=== PATIENT | male | born 1965 | race Caucasian/White ===

== ENCOUNTER 2019-09-08 23:41 | Emergency (ER) | payer MEDICARE, MEDICAID ==
[2019-09-09 01:40] VITALS: BP 141/92; PULSE 98
--- NOTE | 2019-09-09 02:11 | EDM.PDOC ---
ED HPI GENERAL MEDICAL PROBLEM - General Chief Complaint: Lower Extremity Injury/Pain Stated Complaint: MEDS NOT WORKING FOR RIGHT LEG Time Seen by Provider: 09/09/19 01:45 Source of Information: Reports: Patient, RN History Limitations: Reports: Physical Impairment (prior CVA) - History of Present Illness INITIAL COMMENTS - FREE TEXT/NARRATIVE: ED with c/o neuropathic pain, Has been seen in clinic and appears medications increased form 400-600 Neuronitn three times daily. States not working. Has been about 3 weeks since increase. has not contacted or followed up with PCP or neurologist. pain intermittent and shooting. Right Lower Foot Pain Score (Numeric/FACES): 10 - Related Data Allergies Allergy/AdvReac Type Severity Reaction Status Date / Time amoxicillin trihydrate Allergy Severe Anaphylactic Verified 09/09/19 01:17 [From Augmentin] Shock codeine Allergy Nausea and Verified 09/09/19 01:17 Vomiting potassium clavulanate Allergy Anaphylactic Verified 09/09/19 01:17 [From Augmentin] Shock Home Meds: Home Meds Aspirin [Ecotrin] 325 mg PO DAILY 06/17/13 [History] Baclofen [Lioresal] 20 mg PO TID 06/17/13 [History] Gabapentin [Neurontin] 400 mg PO TID 06/17/13 [History] Losartan [Cozaar] 25 mg PO DAILY 06/17/13 [History] Multivitamin with Minerals [Multivitamins with Minerals] 1 cap PO DAILY [History] Simvastatin [Zocor] 10 mg PO BEDTIME 06/17/13 [History] levETIRAcetam [Keppra] 500 mg PO BID 06/17/13 [History] metFORMIN [Glucophage] 1,000 mg PO BIDM 06/17/13 [History] Celecoxib 100 mg PO BID 11/15/18 [History] Past Medical History Cardiovascular History: Reports: High Cholesterol, Hypertension Neurological History: Reports: CVA, Neuropathy, Peripheral, Seizure Endocrine/Metabolic History: Reports: Diabetes, Type II, Obesity/BMI 30+ - Past Surgical History GI Surgical History: Reports: Appendectomy Social & Family History - Family History Family Medical History: Noncontributory - Caffeine Use Caffeine Use: Reports: None - Recreational Drug Use Recreational Drug Use: Yes Recreational Drug Type: Reports: Marijuana/Hashish Recreational Drug Use Frequency: Not Used In Over 1 Month - Living Situation & Occupation Living situation: Reports: Alone Occupation: Disabled Review of Systems - Review of Systems Review Of Systems: Comprehensive ROS is negative, except as noted in HPI. ED EXAM, GENERAL - Physical Exam Exam: See Below Exam Limited By: No Limitations General Appearance: Alert, Anxious, Obese Eye Exam: Bilateral Eye: EOMI, PERRL Ears: Normal External Exam, Hearing Grossly Normal Nose: Normal Inspection Throat/Mouth: Normal Inspection, Normal Voice Head: Normocephalic Neck: Normal Inspection Respiratory/Chest: No Respiratory Distress, Lungs Clear, Normal Breath Sounds Cardiovascular: Regular Rate, Rhythm GI/Abdominal: Normal Bowel Sounds, Soft Extremities: Pedal Edema, Limited Range of Motion, Other (w/c with right sided weakness.) Neurological: Alert, Oriented, Normal Cognition, Sensory/Motor Deficit, Other ( speech deliberate, pressured, clear) Psychiatric: Anxious Skin Exam: Warm, Dry, Normal Color Course - Vital Signs Last Recorded V/S: Last Vital Signs Temp 98.9 F 09/09/19 01:35 Pulse 98 09/09/19 01:35 Resp 18 09/09/19 01:35 BP 141/92 H 09/09/19 01:35 Pulse Ox 100 09/09/19 01:35 - Re-Assessments/Exams Free Text/Narrative Re-Assessment/Exam: 09/12/19 02:21 HX is vague, Qustion processing ability in responses involving anything to do with numbering severity or how long of symptoms. Patient fixated but does not appear in discomfort at time of visit. Departure - Departure Time of Disposition: 02:08 Disposition: Home, Self-Care 01 Condition: Good Clinical Impression: Neuropathy, History of CVA (cerebrovascular accident) - Discharge Information *PRESCRIPTION DRUG MONITORING PROGRAM REVIEWED*: No *COPY OF PRESCRIPTION DRUG MONITORING REPORT IN PATIENT DINORAH: No Instructions: Neuropathic Pain Referrals: Magnolia Loredo MD [Primary Care Provider] - Forms: ED Department Discharge Additional Instructions: take medication as prescribed follow with primary care in am Sepsis Event Note (ED) - Evaluation Sepsis Screening Result: No Definite Risk
== END 2019-09-09 02:13 | disposition home or self-care (01) ==
LOC: DL.ED 23:41
DX: E11.42 Type 2 diabetes mellitus with diabetic polyneuropathy (principal); I10 Essential (primary) hypertension; E78.00 Pure hypercholesterolemia, unspecified; E66.9 Obesity, unspecified; R56.9 Unspecified convulsions; Z68.41 Body mass index [BMI] 40.0-44.9, adult; Z86.73 Personal history of transient ischemic attack (TIA), and cerebral infarction without residual deficits; Z79.84 Long term (current) use of oral hypoglycemic drugs; Z79.899 Other long term (current) drug therapy; Z88.1 Allergy status to other antibiotic agents; Z88.5 Allergy status to narcotic agent; Z79.82 Long term (current) use of aspirin
CPT/HCPCS: 99283

== ENCOUNTER 2023-07-19 20:12 | Emergency (ER) | payer MEDICARE, MEDICAID ==
[2023-07-19 20:55] LABS: BASOPHILS PERCENT AUTO 0.3 % (0.0-1.0); EOSINOPHILS PERCENT AUTO 2.6 % (1.0-3.0); HEMATOCRIT 52.2 % (40.0-54.0); HEMOGLOBIN 17.1 g/dL (14.0-18.0); LYMPHOCYTES PERCENT AUTO 15.8 % (20.5-50.1); MEAN CORPUSCULAR HEMOGLOBIN 24.4 pg (27.0-34.0); MEAN CORPUSCULAR HGB CONC 32.8 g/dL (33.0-35.0); MEAN CORPUSCULAR VOLUME 74.4 fL (80-100); MONOCYTES PERCENT AUTO 11.8 % (2-8); NEUTROPHILS PERCENT AUTO 69.5 % (42.2-75.2); PLATELET COUNT,PLT 294 10^3/uL (150-450); RED BLOOD CELL COUNT 7.02 10^6/uL (4.6-6.2); WHITE BLOOD CELL COUNT,WBC 9.1 10^3/uL (5.0-10.0)
[2023-07-19] MEDS: Ibuprofen 600 MG Tab PO ONE (21:08)
[2023-07-19] MEDS: Sodium Chloride 0.9% 1,000 ML IV ONE (21:10)
[2023-07-19 21:11] LABS: A/G RATIO 0.9; ALBUMIN 3.5 g/dL (3.4-5.0); ANION GAP 17.9 mEq/L (7-13); BUN/CREATININE RATIO 8.3 (No establ ref range); CALCIUM 8.6 mg/dL (8.5-10.1); CREATININE 1.33 mg/dL (0.70-1.30); EST CRCL DRUG DOSING (CG) 61.28 mL/min; POTASSIUM,K 3.9 mmol/L (3.5-5.1); PROTEIN TOTAL,TP 7.5 g/dL (6.4-8.2)
[2023-07-19] MEDS: Sodium Chloride 0.9% 10 ML Syringe FLUSH PRN (21:14)
[2023-07-19 21:15] LABS: LACTIC ACID 1.8 mmol/L (0.4-2.0)
[2023-07-19 21:48] LABS: CORONAVIRUS COVID-19 NAA NEGATIVE (NEGATIVE); INFLUENZA A NAA NEGATIVE (NEGATIVE); INFLUENZA B NAA NEGATIVE (NEGATIVE); RESPIRATORY SYNCYTIAL VIR NAA NEGATIVE (NEGATIVE)
[2023-07-19] MEDS: Lactated Ringers 1,000 ML IV ONE (22:37)
[2023-07-19 22:38] VITALS: BP 102/60; PULSE 98
== END 2023-07-19 23:22 | disposition home or self-care (01) ==
LOC: DL.ED 20:12
DX: J06.9 Acute upper respiratory infection, unspecified (principal); R65.10 Systemic inflammatory response syndrome (SIRS) of non-infectious origin without acute organ dysfunction; E11.65 Type 2 diabetes mellitus with hyperglycemia; I10 Essential (primary) hypertension; E78.00 Pure hypercholesterolemia, unspecified; Z86.73 Personal history of transient ischemic attack (TIA), and cerebral infarction without residual deficits; E66.9 Obesity, unspecified; E11.40 Type 2 diabetes mellitus with diabetic neuropathy, unspecified; Z88.0 Allergy status to penicillin; Z88.5 Allergy status to narcotic agent; Z79.82 Long term (current) use of aspirin; Z79.899 Other long term (current) drug therapy; Z79.84 Long term (current) use of oral hypoglycemic drugs; Z68.36 Body mass index [BMI] 36.0-36.9, adult
CPT/HCPCS: 0241U; 36415; 71045; 80053; 83605; 84484; 85025; 87040; 93005; 96360; 96361; 99284-25; A9270-GY; J3490; J7030; J7120

== ENCOUNTER 2025-03-04 09:32 | Inpatient (IN) | payer MEDICARE, MEDICAID ==
[2025-03-04 10:18] LABS: BASOPHILS PERCENT AUTO 0.2 % (0.0-1.0); EOSINOPHILS PERCENT AUTO 0.0 % (1.0-3.0); LYMPHOCYTES PERCENT AUTO 6.7 % (20.5-50.1); MONOCYTES PERCENT AUTO 10.6 % (2-8); NEUTROPHILS PERCENT AUTO 82.5 % (42.2-75.2); PLATELET COUNT,PLT 247 10^3/uL (150-450); RED BLOOD CELL COUNT 6.66 10^6/uL (4.6-6.2); WHITE BLOOD CELL COUNT,WBC 8.7 10^3/uL (5.0-10.0)
[2025-03-04 10:47] LABS: A/G RATIO 0.9; ALANINE AMINOTRANSFERASE,ALT 40 U/L (16-63); ASPARTATE AMNIOTRANSFERASE,AST 73 U/L (15-37); BILIRUBIN TOTAL 1.5 mg/dL (0.2-1.0); BLOOD UREA NITROGEN,BUN 15 mg/dL (7-18); CARBON DIOXIDE,CO2 21 mmol/L (21-32); CHLORIDE,CL 100 mmol/L (98-107); CREATININE 2.14 mg/dL (0.70-1.30); ESTIMATED GFR 35 mL/min (>=60); GLUCOSE RANDOM 366 mg/dL (70-99); POTASSIUM,K 4.1 mmol/L (3.5-5.1); PROTEIN TOTAL,TP 7.4 g/dL (6.4-8.2); SODIUM,NA 136 mmol/L (136-145); T4 FREE 1.22 ng/dL (0.76-1.46); TSH ULTRASENSITIVE 0.44 uIU/mL (0.36-3.74)
[2025-03-04 10:48] LABS: LACTIC ACID 4.6 mmol/L (0.4-2.0)
[2025-03-04] MEDS: Dexamethasone 4 MG/ML SDV IVPUSH SCH (16:02)
[2025-03-04] MEDS: Nirmatrelvir/Ritonavir 300 MG/100 MG Dosepak PO SCH (16:03)
[2025-03-04 16:11] LABS: IRON,FE 20.0 ug/dL (65-175); PERCENT FE SATURATION 7.6 % (20.0-50.0)
[2025-03-04 16:11] LABS: APPEARANCE,URINE CLEAR (CLEAR); GLUCOSE,URINE 250 (NEGATIVE); OCCULT BLOOD,URINE LARGE (NEGATIVE)
[2025-03-04 16:12] LABS: KETONES,BLOOD NEGATIVE
[2025-03-04] MEDS: Meropenem 1 GM SDV IVPUSH SCH (16:35)
[2025-03-04 16:37] LABS: FOLIC ACID 16.8 ng/mL (8.6-58.9)
[2025-03-04 16:39] LABS: SQUAMOUS EPITHELIAL CELLS,UR RARE /HPF (NOT SEEN)
[2025-03-04] MEDS ORDERED: 50% Dextrose in Water 50 ML Syringe IVPUSH PRN (16:46)
[2025-03-04 17:55] LABS: LACTIC ACID 1.8 mmol/L (0.4-2.0)
[2025-03-04] MEDS: Heparin Sodium 5,000 Units/ML Vial SUBCUT SCH (19:39)
[2025-03-04] MEDS: Insulin Lispro Protamine/Lispro 75-25 100 Units/ML 10 ML Vial SUBCUT SCH (21:10)
[2025-03-05 06:15] LABS: BASOPHILS PERCENT AUTO 0.2 % (0.0-1.0); EOSINOPHILS PERCENT AUTO 0.5 % (1.0-3.0); LYMPHOCYTES PERCENT AUTO 14.0 % (20.5-50.1); MONOCYTES PERCENT AUTO 15.5 % (2-8); NEUTROPHILS PERCENT AUTO 69.8 % (42.2-75.2); PLATELET COUNT,PLT 190 10^3/uL (150-450); RED BLOOD CELL COUNT 6.00 10^6/uL (4.6-6.2); WHITE BLOOD CELL COUNT,WBC 5.9 10^3/uL (5.0-10.0)
[2025-03-05 06:38] LABS: ALANINE AMINOTRANSFERASE,ALT 45.0 U/L (16-63); ASPARTATE AMNIOTRANSFERASE,AST 102.0 U/L (15-37); BILIRUBIN DIRECT 0.4 mg/dL (0.0-0.2); BILIRUBIN INDIRECT 0.9; BILIRUBIN TOTAL 1.3 mg/dL (0.2-1.0); BLOOD UREA NITROGEN,BUN 11.0 mg/dL (7-18); CARBON DIOXIDE,CO2 26.0 mmol/L (21-32); CHLORIDE,CL 103.0 mmol/L (98-107); CREATININE 1.54 mg/dL (0.70-1.30); EST CRCL DRUG DOSING (CG) 41.57 mL/min; GLUCOSE RANDOM 92.0 mg/dL (70-99); PHOSPHORUS 2.6 mg/dL (2.6-4.7); POTASSIUM,K 3.9 mmol/L (3.5-5.1); PROTEIN TOTAL,TP 6.4 g/dL (6.4-8.2); SODIUM,NA 139.0 mmol/L (136-145)
[2025-03-05 06:46] LABS: A/G RATIO 0.83; ESTIMATED GFR 52.0 mL/min (>=60)
[2025-03-05 09:45] LABS: KETONES,BLOOD NEGATIVE
[2025-03-05 09:58] LABS: CREATINE KINASE,CK 3029 U/L (39-308)
[2025-03-05] MEDS: Non-Formulary Medication 1 Each (Potassium Citrate [Urocit-K] 10 MEQ Tablet.Er) PO SCH (10:11)
[2025-03-05] MEDS: ferumoxytoL 500 MG in Sodium Chloride 0.9% 100 ML IV ONE (10:31)
[2025-03-07 06:43] LABS: CREATININE 1.25 mg/dL (0.70-1.30); EST CRCL DRUG DOSING (CG) 51.21 mL/min; ESTIMATED GFR 66.0 mL/min (>=60); VANCOMYCIN RANDOM 18.5 ug/mL (No Normal Range)
[2025-03-07 12:15] VITALS: BP 122/69; PULSE 63
[2025-03-09 11:42] LABS: IONIZED CA@PH7.4 1.18 mmol/L (1.09-1.30); IONIZED CALCIUM 1.17 mmol/L (1.09-1.30)
[2025-03-09 13:47] LABS: HAV AB IGM Negative (Negative); HBC IGM Negative (Negative); HEP B SURG AG Negative (Negative); HEP C AB BY CIA Negative (Negative); HEP C AB BY CIA INDEX 0.09 IV
[2025-03-10 05:46] LABS: AMPHETAMINES Negative; BARBITURATES Negative; BENZODIAZEPINES Negative; BUPRENORPHINE Negative; CANNABINOIDS Presumptivepos ng/mL; COCAINE METABOLITES Negative; METHADONE Negative; METHAMPHETAMINE Negative; OPIATES Negative; OXYCODONE Negative; PHENCYCLIDINE Negative
== END 2025-03-07 13:02 | disposition home or self-care (01) | DRG 871 ==
LOC: DL.ED 09:32 → DL.MS 11:54
PROVIDERS: ADMIT Internal Medicine; ATTEND Internal Medicine
DX: A41.9 Sepsis, unspecified organism (principal); U07.1 COVID-19; E78.00 Pure hypercholesterolemia, unspecified; E66.9 Obesity, unspecified; E11.9 Type 2 diabetes mellitus without complications; Z68.43 Body mass index [BMI] 50.0-59.9, adult; Z88.5 Allergy status to narcotic agent; E87.20 Acidosis, unspecified; R65.20 Severe sepsis without septic shock; Z88.1 Allergy status to other antibiotic agents; E86.0 Dehydration; E83.52 Hypercalcemia; E11.65 Type 2 diabetes mellitus with hyperglycemia; E66.01 Morbid (severe) obesity due to excess calories; D64.9 Anemia, unspecified; I10 Essential (primary) hypertension; E78.5 Hyperlipidemia, unspecified; H91.90 Unspecified hearing loss, unspecified ear; R56.9 Unspecified convulsions; M10.9 Gout, unspecified; E11.40 Type 2 diabetes mellitus with diabetic neuropathy, unspecified; M54.9 Dorsalgia, unspecified; Z86.73 Personal history of transient ischemic attack (TIA), and cerebral infarction without residual deficits; Z88.0 Allergy status to penicillin; Z88.8 Allergy status to other drugs, medicaments and biological substances; Z79.84 Long term (current) use of oral hypoglycemic drugs; Z79.899 Other long term (current) drug therapy; Z79.4 Long term (current) use of insulin; Z90.49 Acquired absence of other specified parts of digestive tract
CPT/HCPCS: 36415; 71045; 80048; 80053; 80074; 80076; 80202; 80307; 81001; 82009; 82330; 82550; 82565; 82607; 82746; 82947; 83036; 83540; 83550; 83605; 83735; 83880; 84100; 84145; 84439; 84443; 84484; 85025; 86140; 87040; 87428-QW; 93971; 94010; 96360; 96361; 97161-GP; 97165-GO; 99284; 99285-25; A9270-GY; J1100; J1644; J1815-GY; J1920; J2185; J3373; J3374; J3375; J7030; J7040; J7050; Q0138